=== PATIENT | female | born 1935 | race Asian ===

== ENCOUNTER 2018-10-12 10:27 | Emergency (ER) | payer MEDICARE, OTHER ==
[~2018-10-12] VITALS: Wt 45.5 kg
--- NOTE | 2018-10-12 11:14 | ERD ---
ER Documentation Chief Complaint Chief Complaint PT HAD A GLF WITH NO LOC. NO NEURO DEFICIT. RIGHT EYE PAIN AND SWELLING. ROS All systems reviewed and are negative except as per history of present illness. Allergies Allergies: Coded Allergies: No Known Allergy (Unverified , 10/12/18) PMhx/Soc History of Surgery: Yes (APPENDECTOMY, FEI, SPINE SX) Anesthesia Reaction: No Hx Neurological Disorder: No Hx Respiratory Disorders: No Hx Cardiac Disorders: Yes (HTN) Hx Psychiatric Problems: No Hx Miscellaneous Medical Probl: Yes (DM) Hx Alcohol Use: No Hx Substance Use: No Hx Tobacco Use: No Smoking Status: Never smoker Physical Exam Vitals Vital Signs Date Temp Pulse Resp B/P (MAP) Pulse Ox O2 O2 Flow FiO2 Time Delivery Rate 10/12/18 98.9 84 18 180/74 98 10:45 (109) Physical Exam Const: No acute distress Head: Atraumatic Eyes: Normal Conjunctiva ENT: Normal External Ears, Nose and Mouth. Neck: Full range of motion. No meningismus. Resp: Clear to auscultation bilaterally Cardio: Regular rate and rhythm, no murmurs Abd: Soft, non tender, non distended. Normal bowel sounds Skin: No petechiae or rashes Back: No midline or flank tenderness Ext: No cyanosis, or edema Neur: Awake and alert Psych: Normal Mood and Affect PAULA BOYCE MD Oct 12, 2018 11:14
[2018-10-12] MEDS ORDERED: METF850T13 PO (12:33)
[2018-10-12] MEDS ORDERED: ESCI10TA48 PO (12:33)
[2018-10-12] MEDS ORDERED: CARV3.1260 PO (12:34)
[2018-10-12] MEDS ORDERED: LOSA50TA14 PO (12:35)
[2018-10-12] MEDS ORDERED: OMEP20CA16 PO (12:36)
[2018-10-12] MEDS ORDERED: AMLO5TAB4 PO (12:36)
[2018-10-12] MEDS ORDERED: LEVO5TAB28 PO (12:37)
[2018-10-12] MEDS ORDERED: GLIM4TAB PO (12:37)
[2018-10-12] MEDS ORDERED: IRON150C11 PO (12:38)
[2018-10-12] MEDS ORDERED: CALC1TAB93 PO (12:38)
[2018-10-12] MEDS ORDERED: LUBI24CA7 PO (12:39)
[2018-10-12] MEDS ORDERED: ALBU18HF INHALATION (12:39)
--- NOTE | 2018-10-12 12:39 | ERD ---
ER Documentation Chief Complaint Chief Complaint PT HAD A GLF WITH NO LOC. NO NEURO DEFICIT. RIGHT EYE PAIN AND SWELLING. HPI This is an 83-year-old female presents for a ground-level mechanical fall. Happened earlier today, she had no loss consciousness, she did suffer significant right eye swelling and pain. Otherwise she denies any neck pain, she had no extremity trauma. ROS All systems reviewed and are negative except as per history of present illness. Allergies Allergies: Coded Allergies: No Known Allergy (Unverified , 10/12/18) PMhx/Soc History of Surgery: Yes (APPENDECTOMY, FEI, SPINE SX) Anesthesia Reaction: No Hx Neurological Disorder: No Hx Respiratory Disorders: No Hx Cardiac Disorders: Yes (HTN) Hx Psychiatric Problems: No Hx Miscellaneous Medical Probl: Yes (DM) Hx Alcohol Use: No Hx Substance Use: No Hx Tobacco Use: No Smoking Status: Never smoker Physical Exam Vitals Vital Signs Date Temp Pulse Resp B/P (MAP) Pulse Ox O2 O2 Flow FiO2 Time Delivery Rate 10/12/18 98.9 84 16 150/67 98 Room Air 12:00 (94) 10/12/18 98.9 84 18 180/74 98 10:45 (109) Physical Exam Head: Atraumatic Eyes: Normal Conjunctiva there is no pain with extraocular movement. Pupils are equal round reactive to light, extraocular motions intact, there is swelling over the right orbit, along with ecchymosis. Negative Svetlana sign const: No acute distress ENT: Normal External Ears, Nose and Mouth. Neck: Full range of motion. No meningismus. Resp: Clear to auscultation bilaterally Cardio: Regular rate and rhythm, no murmurs Abd: Soft, non tender, non distended. Normal bowel sounds Skin: No petechiae or rashes Back: No midline or flank tenderness Ext: No cyanosis, or edema Neur: Awake and alert Psych: Normal Mood and Affect Procedures/MDM This is a 83-year-old female presents for evaluation of a mechanical fall. She had a hematoma over her right orbital area, she had no evidence of entrapment, no evidence of globe rupture, her CT brain, face and C-spine were negative for acute injuries. Patient had no presyncope or syncopal episode prior, she had no neurologic deficits, at discharge she was in no distress. Departure Diagnosis: Primary Impression: Fall Encounter type: initial encounter Qualified Codes: W19.XXXA - Unspecified fall, initial encounter Additional Impression: Hematoma Condition: Stable Patient Instructions: Fall Prevention Additional Instructions: Call your primary care doctor TOMORROW for an appointment during the next 2-3 days.See the doctor sooner or return here if your condition worsens before your appointment time. SHAMAR LANG MD Oct 12, 2018 12:39
[2018-10-12 12:58] VITALS: BP 144/59; PULSE 86; RESP 15
[2018-10-12] MEDS ORDERED: TETRACAINE 0.5% 4 ML OPH RIGHT EYE SCH (13:00)
[2018-10-12] MEDS ORDERED: FLUORESCEIN STRIP RIGHT EYE ONE (13:00)
== END 2018-10-12 15:30 | disposition home or self-care (01) ==
LOC: E/R 10:27
DX: S05.11XA Contusion of eyeball and orbital tissues, right eye, initial encounter (principal); I10 Essential (primary) hypertension; E11.9 Type 2 diabetes mellitus without complications; W18.30XA Fall on same level, unspecified, initial encounter; Y92.9 Unspecified place or not applicable
CPT/HCPCS: 70450; 70486; 72125